=== PATIENT | female | born 1995 | race Caucasian/White ===

== ENCOUNTER 2023-08-29 16:48 | Emergency (ER) | payer OTHER ==
[~2023-08-29] VITALS: Ht 162.6 cm; Wt 77.3 kg
[2023-08-29] MEDS: TraMADol HCL 50 MG TABLET PO ONE (20:47)
[2023-08-29 21:09] VITALS: BP 129/68; PULSE 89; RESP 18; TEMP 98.5
== END 2023-08-29 21:20 | disposition left against medical advice (07) ==
LOC: EMS 16:51
DX: R07.89 Other chest pain (principal); F17.210 Nicotine dependence, cigarettes, uncomplicated; F14.10 Cocaine abuse, uncomplicated
CPT/HCPCS: 71046; 99283